=== PATIENT | female | born 1980 | race Two or more races ===

== ENCOUNTER 2024-05-12 21:21 | Emergency (ER) | payer SELFPAY ==
[2024-05-13] MEDS ORDERED: IBUP-1492 PO (22:55)
[2024-05-13] MEDS ORDERED: METH-659 PO (22:55)
== END 2024-05-12 22:00 | disposition left against medical advice (07) ==
LOC: EMS 21:21
DX: Z53.21 Procedure and treatment not carried out due to patient leaving prior to being seen by health care provider (principal)

== ENCOUNTER 2024-05-13 18:50 | Emergency (ER) | payer OTHER ==
[~2024-05-13] VITALS: Ht 162.6 cm; Wt 66.8 kg
[2024-05-13 18:54] VITALS: TEMP 98.3
[2024-05-13] MEDS: IBUPROFEN 600 MG TABLET PO ONE (21:30)
[2024-05-13] MEDS: METHOCARBAMOL 500 MG TABLET PO ONE (22:19)
[2024-05-13] MEDS: LIDOCAINE 5% TRANSDERMAL PATCH TD ONE (22:20)
[2024-05-13] MEDS ORDERED: IBUP-1492 PO (22:55)
[2024-05-13] MEDS ORDERED: METH-659 PO (22:55)
[2024-05-13 23:02] VITALS: BP 124/65; PULSE 71; RESP 18; O2SAT 100
== END 2024-05-13 23:03 | disposition home or self-care (01) ==
LOC: EMS 18:50
DX: S39.012A Strain of muscle, fascia and tendon of lower back, initial encounter (principal); S16.1XXA Strain of muscle, fascia and tendon at neck level, initial encounter; S29.012A Strain of muscle and tendon of back wall of thorax, initial encounter; Z71.82 Exercise counseling; V49.88XA Car occupant (driver) (passenger) injured in other specified transport accidents, initial encounter; Y93.89 Activity, other specified; Y92.410 Unspecified street and highway as the place of occurrence of the external cause; Y99.8 Other external cause status
CPT/HCPCS: 99284; Z7502; Z7610